=== PATIENT | female | born 1985 | race African-American/Black ===

== ENCOUNTER 2020-11-16 22:57 | Emergency (ER) | payer MEDICAID, OTHER ==
[~2020-11-16] VITALS: Ht 170.2 cm; Wt 119.7 kg
[2020-11-16 22:59] VITALS: BP 177/95
[2020-11-16] MEDS ORDERED: ACETAMINOPHEN 500 MG TAB PO ONE (23:45)
== END 2020-11-17 02:20 | disposition left against medical advice (07) ==
LOC: ER 22:57
DX: R10.84 Generalized abdominal pain (principal); G43.909 Migraine, unspecified, not intractable, without status migrainosus; J45.909 Unspecified asthma, uncomplicated; Z90.49 Acquired absence of other specified parts of digestive tract; Z88.6 Allergy status to analgesic agent